=== PATIENT | male | born 1955 | race Hispanic/Latino ===

== ENCOUNTER 2018-01-09 01:14 | Inpatient (IN) | payer OTHER ==
[2018-01-09] MEDS ORDERED: ASPIRIN 325 MG TAB ONE (01:44)
[2018-01-09] MEDS ORDERED: NITROGLYCERIN 0.4 MG/TAB SL ONE (01:44)
[2018-01-09 02:11] LABS: Absolute Lymphocytes (CBC) 5.7 K/uL (0.7-4.9); Absolute Monocytes 1.1 K/uL (0.1-1.3); Absolute Neutrophil 5.5 K/uL (1.8-8.0); Basophils % 1.2 % (0-1.3); Hematocrit 41.8 % (39.6-49.0); Lymphocytes % 43.8 % (15.3-44.8); MCH 30.5 pg (27.0-35.0); MCV 91.6 fL (80-100); Monocytes % 8.5 % (3.3-12.3); RBC Red Blood Cell Count 4.56 M/uL (4.33-5.43)
[2018-01-09 02:15] LABS: Protime INR 0.95
[2018-01-09 02:41] LABS: Potassium 3.3 mEq/L (3.6-5.0)
[2018-01-09 02:47] LABS: Albumin 3.8 g/dL (3.2-5.5); Bilirubin Direct 0.1 mg/dL (0-0.2); Bilirubin Total 0.4 mg/dL (0.3-1.2); Magnesium 1.6 mg/dL (1.8-2.5); Protein, Total 7.4 g/dL (6.0-8.3)
[2018-01-09 02:54] LABS: CKMB Creatine Kinase MB 1.6 ng/ml (0.3-4.0)
--- NOTE | 2018-01-09 03:09 | ER ---
Nurse's Notes [facility] Name: Abad Santos Age: 62 yrs Sex: Male : 1955 Arrival Date: 01/09/2018 Time: 01:15 Bed 19 Private MD: Diagnosis: Non-ST elevation (NSTEMI) myocardial infarction Presentation: 01/09 01:24 Presenting complaint: Patient states: burning CP for past several days but became worse aa1 tonight. Pt appears diaphoretic. Transition of care: patient was not received from another setting of care. Onset of symptoms was January 09, 2018. Initial Sepsis Screen: Does the patient meet any 2 criteria? No. Patient's initial sepsis screen is negative. Does the patient have a suspected source of infection? No. Patient's initial sepsis screen is negative. Care prior to arrival: None. 01:24 Method Of Arrival: Wheelchair aa1 01:24 Acuity: JOSE MIGUEL 2 aa1 Historical: - Allergies: 01:29 No Known Allergies; aa1 - Home Meds: :29 Clinoril Oral 200 mg twice a day [Active]; Pravachol 10 mg Oral nightly [Active]; aa1 allopurinol 300 mg Oral tab 1 tab once daily [Active]; lisinopril 40 mg Oral tab 1 tab once daily [Active]; aspirin 81 mg Oral TbEC 1 tab once daily [Active]; Tenoretic 100 100-25 mg oral tab 1 tab once daily [Active]; tramadol 50 mg Oral tab as needed [Active]; colchicine 0.6 mg Oral tab 1 tab once daily [Active]; - PMHx: 01:29 Hypertension; Gout; aa1 - PSHx: 01:29 None; aa1 - Immunization history:: Flu vaccine is not up to date. - Social history:: Smoking status: Patient uses tobacco products, smokes one-half pack cigarettes per day. Screenin:34 Abuse screen: Denies threats or abuse. Denies injuries from another. Nutritional bp screening: No deficits noted. Tuberculosis screening: No symptoms or risk factors identified. Fall Risk None identified. Assessment: 01:30 General: Appears distressed, uncomfortable, obese, Behavior is cooperative, appropriate bp for age, anxious. Pain: Complains of pain in mid-sternal area Pain currently is 8 out of 10 on a pain scale. Neuro: Level of Consciousness is awake, alert, obeys commands, Oriented to person, place, time, situation, Appropriate for age. Cardiovascular: Rhythm is sinus bradycardia Chest pain. Respiratory: Airway is patent Respiratory effort is even, unlabored, Respiratory pattern is regular, symmetrical, Denies shortness of breath. GI: No signs and/or symptoms were reported involving the gastrointestinal system. : No signs and/or symptoms were reported regarding the genitourinary system. EENT: No deficits noted. Derm: No deficits noted. Musculoskeletal: Circulation, motion, and sensation intact. Range of motion: intact in all extremities. 02:56 Reassessment: PT C/O MORE CP, BRIEFLY HYPOTENSIVE AND BRADYCARDIC. EKG REPEATED, bp ABNORMALITIES NOTED ON MONITOR. 05:53 Reassessment: ADMIT ORDERS ON FILE, PT EXPRESSING COMPLETE RELIEF OF S/S. bp Vital Signs: 01:29 BP 133 / 84; Pulse 59; Resp 22; Temp 97.3; Pulse Ox 97% on R/A; Weight 126.1 kg; Height aa1 5 ft. 10 in. (177.80 cm); Pain 8/10; 01:34 BP 127 / 90; Pulse 58; Resp 15; Pulse Ox 95% ; bp 02:57 BP 113 / 71; Pulse 58; Resp 12; Pulse Ox 97% ; bp 03:32 BP 127 / 84; Pulse 59; Resp 16; Pulse Ox 93% ; bp 04:30 BP 130 / 82; Pulse 64; Resp 13; Pulse Ox 98% ; bp 05:30 BP 120 / 79; Pulse 58; Resp 14; Pulse Ox 97% ; bp 06:00 BP 123 / 83; Pulse 57; Resp 14; Pulse Ox 97% ; bp 01:29 Body Mass Index 39.89 (126.10 kg, 177.80 cm) aa1 ED Course: 01:15 Patient arrived in ED. ds1 01:25 Triage completed. aa1 01:25 EKG done, by ED staff, reviewed by Enrike Mcmahan MD. aa1 01:29 Arm band placed on right wrist. Patient placed in an exam room, on a stretcher. aa1 01:30 Patient has correct armband on for positive identification. Bed in low position. Call aa1 light in reach. monitoring specialist on. Pulse ox on. NIBP on. 01:31 Abdulaziz Reese, RN is Primary Nurse. bp 01:33 Inserted saline lock: 20 gauge in right forearm, using aseptic technique. Blood bp collected. 01:34 Enriek Mcmahan MD is Attending Physician. tw4 01:57 X-ray completed. Portable x-ray completed in exam room. Patient tolerated procedure kw well. 01:57 XRAY Chest (1 view) In Process Unspecified. EDMS 03:07 Ryan Sanford MD is Hospitalizing Provider. tw4 03:33 No provider procedures requiring assistance completed. Patient admitted, IV remains in bp place. 06:40 Primary Nurse role handed off by Abdulaziz Reese, RN 06:41 Abdulaziz Reese, VIKTORIYA is Primary Nurse. bp Administered Medications: 01:45 Drug: Aspirin Chewable Tablet 162 mg Route: PO; bp 01:50 Follow up: Response: No adverse reaction bp 01:45 Drug: Nitroglycerin 0.4 mg Route: Sublingual; bp 03:30 Follow up: Response: Blood pressure is lowered bp 03:30 Drug: Lovenox 1 mg/kg Route: Sub-Q; Site: right lower abdomen; bp 03:31 Follow up: Response: No adverse reaction bp Outcome: 03:08 Decision to Hospitalize by Provider. tw4 06:06 Admitted to Tele accompanied by tech, family with patient, via stretcher, room 411, bp with chart, Report called to SKYLAR SADLER 06:07 Condition: stable bp 06:07 Instructed on the need for admit. 06:30 Patient left the ED. bp 06:42 Patient left the ED. Signatures: Dispatcher [employer] EDID Amena Delgado RN RN aa1 Nicole Morales RN RN Priscilla Mathews 1 Sandra Rojas Abdulaziz Reese, VIKTORIYA RN bp Enrike Mcmahan MD MD tw4
--- NOTE | 2018-01-09 03:09 | EDPHYS ---
Physician Documentation [facility] Name: Abad Santos Age: 62 yrs Sex: Male : 1955 Arrival Date: 01/09/2018 Time: 01:15 Bed 19 Private MD: ED Physician Enrike Mcmahan HPI: 01/09 01:38 This 62 yrs old Male presents to ER via Wheelchair with complaints of Chest tw4 Pain. 01:38 The patient or guardian reports chest pain that is located primarily in the anterior tw4 chest wall, left. Onset: last week. The pain does not radiate. Associated signs and symptoms: The patient has no apparent associated signs or symptoms. The chest pain is described as dull, a heaviness. Duration: The patient or guardian reports a single episode. Modifying factors: The symptoms are alleviated by nothing. the symptoms are aggravated by nothing. Severity of pain: At its worst the pain was severe in the emergency department the pain is a 8 / 10. The patient has not experienced similar symptoms in the past. Historical: - Allergies: :29 No Known Allergies; aa1 - Home Meds: :29 Clinoril Oral 200 mg twice a day [Active]; Pravachol 10 mg Oral nightly [Active]; aa1 allopurinol 300 mg Oral tab 1 tab once daily [Active]; lisinopril 40 mg Oral tab 1 tab once daily [Active]; aspirin 81 mg Oral TbEC 1 tab once daily [Active]; Tenoretic 100 100-25 mg oral tab 1 tab once daily [Active]; tramadol 50 mg Oral tab as needed [Active]; colchicine 0.6 mg Oral tab 1 tab once daily [Active]; - PMHx: :29 Hypertension; Gout; aa1 - PSHx: 01:29 None; aa1 - Immunization history:: Flu vaccine is not up to date. - Social history:: Smoking status: Patient uses tobacco products, smokes one-half pack cigarettes per day. ROS: 01:38 Constitutional: Negative for fever, chills, and weight loss, Respiratory: Negative for tw4 shortness of breath, cough, wheezing, and pleuritic chest pain, Abdomen/GI: Negative for abdominal pain, nausea, vomiting, diarrhea, and constipation, Back: Negative for injury and pain, MS/Extremity: Negative for injury and deformity. 01:38 Cardiovascular: Positive for chest pain, Negative for edema, orthopnea, palpitations, paroxysmal nocturnal dyspnea. Exam: 01:38 Constitutional: This is a well developed, well nourished patient who is awake, alert, tw4 and in no acute distress. Head/Face: Normocephalic, atraumatic. Chest/axilla: Normal chest wall appearance and motion. Nontender with no deformity. No lesions are appreciated. Cardiovascular: Regular rate and rhythm with a normal S1 and S2. No gallops, murmurs, or rubs. Normal PMI, no JVD. No pulse deficits. Respiratory: Lungs have equal breath sounds bilaterally, clear to auscultation and percussion. No rales, rhonchi or wheezes noted. No increased work of breathing, no retractions or nasal flaring. Abdomen/GI: Soft, non-tender, with normal bowel sounds. No distension or tympany. No guarding or rebound. No evidence of tenderness throughout. Back: No spinal tenderness. No costovertebral tenderness. Full range of motion. MS/ Extremity: Pulses equal, no cyanosis. Neurovascular intact. Full, normal range of motion. Neuro: Awake and alert, GCS 15, oriented to person, place, time, and situation. Cranial nerves II-XII grossly intact. Motor strength 5/5 in all extremities. Sensory grossly intact. Cerebellar exam normal. Normal gait. Vital Signs: 01:29 BP 133 / 84; Pulse 59; Resp 22; Temp 97.3; Pulse Ox 97% on R/A; Weight 126.1 kg; Height aa1 5 ft. 10 in. (177.80 cm); Pain 8/10; 01:34 BP 127 / 90; Pulse 58; Resp 15; Pulse Ox 95% ; bp 02:57 BP 113 / 71; Pulse 58; Resp 12; Pulse Ox 97% ; bp 03:32 BP 127 / 84; Pulse 59; Resp 16; Pulse Ox 93% ; bp 04:30 BP 130 / 82; Pulse 64; Resp 13; Pulse Ox 98% ; bp 05:30 BP 120 / 79; Pulse 58; Resp 14; Pulse Ox 97% ; bp 06:00 BP 123 / 83; Pulse 57; Resp 14; Pulse Ox 97% ; bp 01:29 Body Mass Index 39.89 (126.10 kg, 177.80 cm) aa1 MDM: 01:34 Patient medically screened. 05:22 Differential diagnosis: acute myocardial infarction, acute pericarditis, coronary tw4 artery disease chest wall pain, pulmonary embolus, stable angina, thoracic aortic disection, unstable angina. Data reviewed: vital signs, nurses notes. Data interpreted: digital circuit designer: rhythm is normal sinus rhythm, Pulse oximetry: Interpretation: normal. Counseling: I had a detailed discussion with the patient and/or guardian regarding: the historical points, exam findings, and any diagnostic results supporting the discharge/admit diagnosis, lab results, radiology results. Physician consultation: Ryan Sanford MD was contacted at 04:40, regarding admission, and will see patient in inpatient room, would like consultation with Cardiology \[id number] Dr Iglesias. Admission orders: after a detailed discussion of the patient's condition and case, the admit orders are written by me. 01/09 01:35 Order name: Basic Metabolic Panel; Complete Time: 02:58 01/09 01:35 Order name: BNP; Complete Time: 02:58 01/09 01:35 Order name: CBC with Diff; Complete Time: 02:58 01/09 01:35 Order name: Ckmb; Complete Time: 02:58 01/09 01:35 Order name: CPK; Complete Time: 02:58 01/09 01:35 Order name: LFT's; Complete Time: 02:58 01/09 01:35 Order name: Magnesium; Complete Time: 02:58 01/09 01:35 Order name: PT-INR; Complete Time: 02:58 01/09 01:35 Order name: Ptt, Activated; Complete Time: 02:58 01/09 01:35 Order name: Troponin (emerg Dept Use Only); Complete Time: 02:58 01/09 05:28 Order name: CKMB Creatine Kinase MB EDDC 01/09 05:28 Order name: CKMB Creatine Kinase MB EDDC 01/09 05:28 Order name: CKMB Creatine Kinase MB EDDC 01/09 05:28 Order name: Creatine Phosphokinase EDDC 01/09 01:35 Order name: XRAY Chest (1 view) 01/09 01:35 Order name: EKG; Complete Time: 01:36 01/09 05:28 Order name: CONS Physician Consult [facility] 01/09 05:28 Order name: Creatine Phosphokinase [facility] 01/09 05:28 Order name: Creatine Phosphokinase [facility] 01/09 05:28 Order name: Lipid Profile [facility] 01/09 05:28 Order name: Lipid Profile [facility] 01/09 05:28 Order name: Troponin I [facility] 01/09 05:28 Order name: Troponin I [facility] 01/09 05:28 Order name: Troponin I [facility] 01/09 05:29 Order name: Echo with Doppler [facility] 01/09 05:30 Order name: Abdomen Exam Limited [facility] 01/09 06:41 Order name: Urine Dipstick--Ancillary (enter results) 01/09 01:35 Order name: Cardiac monitoring; Complete Time: 01:36 01/09 01:35 Order name: EKG - Nurse/Tech; Complete Time: 01:36 01/09 01:35 Order name: IV Saline Lock; Complete Time: 01:36 01/09 01:35 Order name: Labs collected and sent; Complete Time: 01:37 01/09 01:35 Order name: O2 Per Protocol; Complete Time: 01:37 01/09 01:35 Order name: O2 Sat Monitoring; Complete Time: 01:37 01/09 01:35 Order name: Urine Dipstick-Ancillary (obtain specimen); Complete Time: 04:41 01/09 05:30 Order name: NPO [facility] EC:38 Rate is 58 beats/min. Rhythm is regular. [place] interval is normal. QRS interval is normal. tw4 QT interval is normal. No Q waves. T waves are Inverted in leads III, aVF. No ST changes noted. Clinical impression: NSR w/ Non-specific ST/T Changes and No evidence of ischemia. Interpreted by me. Reviewed by me. Administered Medications: 01:45 Drug: Aspirin Chewable Tablet 162 mg Route: PO; bp 01:50 Follow up: Response: No adverse reaction bp 01:45 Drug: Nitroglycerin 0.4 mg Route: Sublingual; bp 03:30 Follow up: Response: Blood pressure is lowered bp 03:30 Drug: Lovenox 1 mg/kg Route: Sub-Q; Site: right lower abdomen; bp 03:31 Follow up: Response: No adverse reaction bp Disposition: 01/09/18 03:08 Hospitalization ordered by Ryan Sanford for Inpatient Admission. Preliminary diagnosis is Non-ST elevation (NSTEMI) myocardial infarction. - Bed requested for Telemetry/MedSurg (Inpatient). - Status is Inpatient Admission. fc - Condition is Stable. - Problem is new. - Symptoms have worsened. UTI on Admission? No Signatures: Dispatcher [employer] EDMS Yovana Vásquez RN RN Amena Delgado RN RN aa1 Nicole Morales RN VIKTORIYA Abdulaziz Reese, RN VIKTORIYA Enrike Mcmahan MD MD tw4 Corrections: (The following items were deleted from the chart) 03:18 03:08 Hospitalization Ordered by Ryan Sanford MD for Inpatient Admission. Preliminary diagnosis is Non-ST elevation (NSTEMI) myocardial infarction. Bed requested for Telemetry/MedSurg (Inpatient). Status is Inpatient Admission. Condition is Stable. Problem is new. Symptoms have worsened. UTI on Admission? No. tw4 06:30 03:18 01/09/2018 03:08 Hospitalization Ordered by Ryan Sanford MD for Inpatient bp Admission. Preliminary diagnosis is Non-ST elevation (NSTEMI) myocardial infarction. Bed requested for Telemetry/MedSurg (Inpatient). Status is Inpatient Admission. Condition is Stable. Problem is new. Symptoms have worsened. UTI on Admission? No. mw 06:42 06:30 01/09/2018 03:08 Hospitalization Ordered by Ryan Sanford MD for Inpatient fc Admission. Preliminary diagnosis is Non-ST elevation (NSTEMI) myocardial infarction. Bed requested for Telemetry/MedSurg (Inpatient). Status is Inpatient Admission. Condition is Stable. Problem is new. Symptoms have worsened. UTI on Admission? No. bp
[2018-01-09] MEDS ORDERED: ENOXAPARIN 100 MG/ML SYR SQ ONE (03:27)
[2018-01-09] MEDS ORDERED: MORPHINE 4 MG/ML SYR IV PRN (05:23)
[2018-01-09] MEDS ORDERED: ACETAMINOPHEN 500 MG TAB PO PRN (05:23)
--- NOTE | 2018-01-09 05:34 | P.HP ---
Certification for Inpatient Patient admitted to: Inpatient With expected LOS: >2 Midnights Patient will require the following post-hospital care: None Practitioner: I am a practitioner with admitting privileges, knowledge of patient current condition, hospital course, and medical plan of care. Services: Services provided to patient in accordance with Admission requirements found in Title 42 Section 412.3 of the Code of Federal Regulations Patient History Date of Service: 01/09/18 Reason for admission: Chest pain rule out acute coronary syndrome History of Present Illness: Patient is a 62-year-old gentleman who came to hospital with chest pain. Patient 's pain was in the sternal region. Patient was short of breath. Patient's pain was really sharp. Patient was having diaphoresis. Patient came into the hospital for further evaluation. Patient's history of hypertension and dyslipidemia. Patient denies having diabetes. Patient's EKG reveals Q-waves in the inferior leads. Patient was admitted to hospital further evaluation. Allergies No Known Allergies Allergy (Unverified 01/09/18 03:59) Home medications list reviewed: No - Past Medical/Surgical History -: Hypertension -: Dyslipidemia -: BPH Past Surgical History: Reviewed- Non-Contributory - Family History Father Family History: Reviewed- Non-Contributory - Social History Smoking Status: Never smoker Alcohol use: No CD- Drugs: No Review of Systems 10-point ROS is otherwise unremarkable Physical Examination - Vital Signs Temperature: 99 F Blood Pressure: 110/80 Pulse: 60 Respirations: 18 Pulse Ox (%): 96 - Physical Exam General: Alert, In no apparent distress, Oriented x3 HEENT: Atraumatic, PERRLA, Mucous membr. moist/pink, EOMI, Sclerae nonicteric Neck: Supple, 2+ carotid pulse no bruit, No LAD, Without JVD or thyroid abnormality Respiratory: Clear to auscultation bilaterally, Normal air movement Cardiovascular: Regular rate/rhythm, Normal S1 S2, No murmurs Gastrointestinal: Normal bowel sounds, Soft and benign, Non-distended, No tenderness Musculoskeletal: No clubbing, No swelling, No tenderness Integumentary: No rashes Neurological: Normal gait, Normal speech, Normal strength at 5/5 x4 extr, Normal tone, Sensation intact, Cranial nerves 3-12 intact, Normal affect Lymphatics: No axilla or inguinal lymphadenopathy - Studies Laboratory Data (last 24 hrs) 01/09/18 01:35: PT 11.2, INR 0.95, APTT 27.9 01/09/18 01:35: WBC 13.0 H, Hgb 13.9, Hct 41.8, Plt Count 334 01/09/18 01:35: B-Natriuretic Peptide 237 H 01/09/18 01:35: Sodium 139, Potassium 3.3 L, BUN 41 H, Creatinine 1.49 H, Glucose 135 H, Magnesium 1.6 L, Total Bilirubin 0.4, AST 20, ALT 12, Alkaline Phosphatase 76 Assessment & Plan - Problems (Diagnosis) (1) Unstable angina Current Visit: Yes Status: Acute (2) Hypertension Current Visit: Yes Status: Acute (3) Dyslipidemia Current Visit: Yes Status: Acute (4) Positive Sharma's Sign Current Visit: Yes Status: Acute (5) Acute renal insufficiency Current Visit: Yes Status: Acute - Plan Plan: 1. Serial troponins and EKG 2. Cardiology consultation 3. Echocardiogram further evaluation per Cardiology 4. Anti-platelet therapy, anticoagulation, beta-bimal, statin, and O2 as needed 5. IV morphine for pain 6. Nitro p.r.n. 7. Right upper quadrant abdominal ultrasound 8. Mucomyst and bicarb drip for renal protection 9. GI and DVT prophylaxis Discharge Plan: Home Plan to discharge in: 24 Hours - Advance Directives Does patient have a Living Will: No Does patient have a Durable POA for Healthcare: No - Code Status/Comfort Care Code Status Assessed: Yes Code Status: Full Code Critical Care: No Time Spent Managing PTS Care (In Minutes): 50
[2018-01-09] MEDS ORDERED: ACETYLCYST 20% 800 MG/4 ML VIAL PO ONE (06:37)
--- NOTE | 2018-01-09 06:43 | P.PN ---
Date of Service: 01/09/18 Spoke to nursing staff, VIKTORIYA Hatfield. Patient's chest pain is resolved. No complaints of chest pain at this time. May nursing staff aware that patient needs to be kept NPO for possible cardiac intervention today
[2018-01-09] MEDS ORDERED: KCL 20 MEQ/100 mL IVPB 20 MEQ/100 ML BAG IV SCH (07:00)
[2018-01-09 07:22] LABS: CKMB Creatine Kinase MB 152.3 ng/ml (0.3-4.0)
[2018-01-09] MEDS: D5W 1,000 ML with NA BICARB 8.4% 50 MEQ IV SCH ×4 (07:43→21:00)
[2018-01-09] MEDS: METOPROLOL TAR 50 MG TAB PO SCH ×2 (07:44→21:20)
--- NOTE | 2018-01-09 08:56 | RAD REPORT ---
EXAM DESCRIPTION: RAD - Chest Single View - 01/09/2018 1:58 am CLINICAL HISTORY: Chest pain. COMPARISON: None. FINDINGS: Portable technique limits examination quality. Mild nonspecific interstitial prominence is seen. This may indicate mild interstitial pulmonary edema or interstitial pneumonitis. The heart is upper limit normal size. No displaced fractures.
[2018-01-09] MEDS ORDERED: ASPIRIN 325 MG TAB PO SCH (09:00)
[2018-01-09] MEDS ORDERED: VALSARTAN 80 MG TAB PO SCH (09:00)
--- NOTE | 2018-01-09 09:35 | RAD REPORT ---
EXAM DESCRIPTION: US - Abdomen Exam Limited - 01/09/2018 8:13 am CLINICAL HISTORY: Abdominal pain. COMPARISON: None. FINDINGS: The gallbladder demonstrates no gallstones. No pericholecystic fluid or gallbladder wall t hickening. The common bile duct is normal measuring 4 mm. The liver demonstrates no findings of intrahepatic biliary dilatation. IMPRESSION: Unremarkable examination.
[2018-01-09 09:51] LABS: Urine Blood NEGATIVE (NEG); Urine Glucose NEGATIVE (NEG); Urine Protein NEGATIVE (NEG); Urine pH 5.5 (5.0-7.0)
[2018-01-09] MEDS ORDERED: NA CHLORIDE 0.9% 500 ML ONE (11:14)
[2018-01-09] MEDS ORDERED: HEPARIN 5000 UNIT/ML 1 ML VIAL ONE (11:14)
[2018-01-09] MEDS ORDERED: HEPA 1000U/500MLS 2,000 UNIT/1,000 ML BAG IV ONE (11:15)
[2018-01-09] MEDS ORDERED: NA CHLORIDE 0.9% 0 ML ONE (11:15)
[2018-01-09] MEDS ORDERED: LIDOCAINE 1% 20 ML MDV ONE (11:15)
[2018-01-09] MEDS ORDERED: NICARDIPINE HCL 25 MG/10 ML IV ONE (11:15)
[2018-01-09] MEDS ORDERED: ATROPINE SULF 1 MG/10 ML SYR IV ONE (11:15)
[2018-01-09] MEDS ORDERED: FENTANYL CITR 100 MCG/2 ML ONE (11:25)
[2018-01-09] MEDS ORDERED: MIDAZOLAM HCL 2 MG/2 ML INJ ONE ×2 (11:25→11:35)
--- NOTE | 2018-01-09 11:27 | CON ---
Identification: A 62-year-old man. Attending Physician: Dr. Sanford. Chief Complaint: Pain and burning in the chest. It has resolved at this point. History Of Present Illness: For about a week, Mr. Sebastian has been having chest pain whenever he ex erts himself. Yesterday, he tried to mow his lawn, could not really complete it because with with ex ertion, it got worse. Came to the ER, was having chest pain, received Lovenox and aspirin. Chest pa in resolved and overnight, he has had cardiac enzymes that are clearly abnormal. The troponin was 0. 25 on admission, 6.49 a few hours later. Past Medical History: The patient has no previous history of myocardial infarction, stroke. Medications: He does take medicines for diabetes and hypertension. Allergies: HE HAS NO ALLERGIES. Social History: He smokes about 4 cigarettes per day, is willing to quit. Past Surgical History: No previous surgical history. Physical Examination: General: He is 5 feet 10 inches, 276 pounds, body mass index 39. HEENT: Normal. Lungs: Clear. Heart: S4 gallop. No significant murmur. Abdomen: Soft. Extremities: Mild edema. Distal pulses diminished. Diagnostic Data: His electrocardiogram reveals an inferior infarction. No injury pattern. Impression: The patient has had a non-ST elevation myocardial infarction. His Q-waves maybe from an inferior myocardial infarction that is recent, but completed. He needs to have a cardiac cath. We will do that later today. He seems to understand the procedure, its potential benefits, indications, risks, and agrees to proceed. JL/ALEXEI Voice ID: [id number] Report ID: [id number]
--- NOTE | 2018-01-09 14:41 | P.PN ---
Subjective Date of Service: 01/09/18 Primary Care Provider: Dr. Hough ([place], [place]) Chief Complaint: Chest pain rule out acute coronary syndrome Subjective: Doing well Physical Examination - Vital Signs Temperature: 97 F Blood Pressure: 133/78 Pulse: 59 Respirations: 16 Pulse Ox (%): 95 - Physical Exam General: Alert, In no apparent distress, Oriented x3, Cooperative HEENT: Atraumatic, Mucous membr. moist/pink Neck: Supple Respiratory: Clear to auscultation bilaterally, Normal air movement Cardiovascular: Normal pulses, Regular rate/rhythm Gastrointestinal: Normal bowel sounds, Soft and benign, Non-distended, No tenderness, No masses, No rebound, No guarding Musculoskeletal: No erythema, No tenderness, No warmth Integumentary: No tenderness/swelling, No erythema, No warmth, No cyanosis Neurological: Normal speech, Normal strength at 5/5 x4 extr, Normal tone, Normal affect Lymphatics: No axilla or inguinal lymphadenopathy - Studies Laboratory Data (last 24 hrs) 01/09/18 01:35: PT 11.2, INR 0.95, APTT 27.9 01/09/18 01:35: WBC 13.0 H, Hgb 13.9, Hct 41.8, Plt Count 334 01/09/18 01:35: B-Natriuretic Peptide 237 H 01/09/18 01:35: Sodium 139, Potassium 3.3 L, BUN 41 H, Creatinine 1.49 H, Glucose 135 H, Magnesium 1.6 L, Total Bilirubin 0.4, AST 20, ALT 12, Alkaline Phosphatase 76 Medications List Reviewed: Yes Assessment & Plan - Problems (Diagnosis) (1) CAD (coronary artery disease) Current Visit: Yes Status: Acute Plan: Patient heart heart catheterization this morning. Case discussed with cardiology. Patient has severe CAD. Patient will need be transferred to higher level of care for CABG. Arrangements for transfer will be arranged. Qualifiers: Coronary Disease-Associated Artery/Lesion type: unspecified vessel or lesion type Associated angina: with unstable angina (2) Hypertension Onset Date: 01/09/18 Current Visit: Yes Status: Chronic Plan: Continue with blood pressure control. Will monitor and adjust appropriately. Qualifiers: Hypertension type: essential hypertension Qualified Code(s): I10 - Essential (primary) hypertension (3) Unstable angina Onset Date: 01/09/18 Current Visit: Yes Status: Acute Plan: Patient had abnormal heart catheterization. Will transfer to higher level of care for CABG. (4) Non Q wave myocardial infarction Current Visit: Yes Status: Acute (5) Hypokalemia Current Visit: Yes Status: Acute Plan: Will continue to monitor and replace. Replacement protocol in place. (6) Hypomagnesemia Current Visit: Yes Status: Acute Plan: Will continue to monitor and replace. Replacement protocol in place. (7) Acute renal insufficiency Onset Date: 01/09/18 Current Visit: Yes Status: Acute Plan: Patient with acute renal insufficiency. Will need to evaluate for chronic renal disease. Will check renal ultrasound. Discharge Plan: Transfer Plan to discharge in: 24 Hours Time Spent Managing Pts Care (In Minutes): 55
[2018-01-09] MEDS ORDERED: TRAMADOL HCL 50 MG TAB PO PRN (14:42)
--- NOTE | 2018-01-09 14:43 | EKG ---
Test Date: 2018-01-09 Test Time: 02:49:03 Radio Talk Show Host: BP MEASUREMENT RESULTS: Intervals: Rate: 58 TX: 190 QRSD: 106 QT: 442 QTc: 433 [place]: P: 1 TX: 190 QRS: 67 T: -26 INTERPRETIVE STATEMENTS: Sinus bradycardia with fusion complexes Inferior infarct, age undetermined Abnormal ECG Compared to ECG 01/09/2018 01:22:25 Fusion complex(es) now present Myocardial infarct finding still present Electronically Signed On 01-09-18 14:43:30 CDT by Rosendo Ambrocio
--- NOTE | 2018-01-09 14:44 | EKG ---
Test Date: 2018-01-09 Test Time: 01:22:25 Correspondent: BP MEASUREMENT RESULTS: Intervals: Rate: 58 NC: 196 QRSD: 106 QT: 464 QTc: 455 [place]: P: 5 NC: 196 QRS: 41 T: -15 INTERPRETIVE STATEMENTS: Sinus bradycardia Inferior infarct, age undetermined Abnormal ECG No previous ECG available for comparison Electronically Signed On 01-09-18 14:43:40 CDT by Rosendo Ambrocio
--- NOTE | 2018-01-09 15:43 | ECHO ---
HEIGHT: 5 ft 10 in WEIGHT: 276 lb 8 oz DATE OF STUDY: 01/09/[address]: Ryan Sanford MD 2-DIMENSIONAL: YES M.MODE: YES DOPPLER: YES COLOR FLOW: YES TDS: NO PORTABLE: NO DEFINITY: NO BUBBLE STUDY: NO DIAGNOSIS: CONGESTIVE HEART FAILURE CARDIAC HISTORY: CATHERIZATION: NO SURGERY: NO PROSTHETIC VALVE: NO PACEMAKER: NO MEASUREMENTS (cm) DIASTOLIC (NORMALS) SYSTOLIC (NORMALS) IVSd 1.2 (0.6-1.2) LA Diam 4.1 (1.9-4.0) LVEF 55-59% LVIDd 5.4 (3.5-5.7) LVIDs 4.2 (2.0-3.5) %FS 22% LVPWd 1.3 (0.6-1.2) Ao Diam 3.2 (2.0-3.7) 2 DIMENSIONAL ASSESSMENT: RIGHT ATRIUM: NORMLA LEFT ATRIUM: DILATED RIGHT VENTRICLE: NORMAL LEFT VENTRICLE: LEFT VENTRICULAR HYPERTROPHY TRICUSPID VALVE: NORMAL MITRAL VALVE: NORMAL PULMONIC VALVE: NORMAL AORTIC VALVE: SCLEROSIS PERICARDIAL EFFUSION: NONE AORTIC ROOT: NORMAL LEFT VENTRICULAR WALL MOTION: NORMAL DOPPLER/COLOR FLOW: MILD MITRAL REGURGITATION. MILD AORTIC REGURGITATION. NO AORTIC STENOSIS. COMMENTS: NORMAL LEFT VENTRICULAR EJECTION FRACTION. LEFT VENTRICULAR HYPERTROPHY. DILATED LEFT ATRIUM. AORTIC SCLEROSIS WITH NO AORTIC STENOSIS. MILD MITRAL REGURGITATION. MILD AORTIC REGURGITATION. TECHNOLOGIST: Evi RUIZ
[2018-01-09] MEDS ORDERED: Enoxaparin 120 MG/0.8 ML SYR SQ SCH (16:00)
--- NOTE | 2018-01-09 17:01 | RAD REPORT ---
EXAM DESCRIPTION: US - Renal Ultrasound-Complete - 01/09/2018 4:16 pm CLINICAL HISTORY: Chronic renal disease. COMPARISON: None. FINDINGS: Both kidneys are normal in size, shape and echotexture. The right kidney measures 10.7 x 6.0 x 5.0 cm. No hydronephrosis seen. 5.3 x 4.8 cm anechoic cyst is present medially. 2.5 x 1.9 cm exophytic cyst is present superiorly. The left kidney measures 11.3 x 5.9 x 4.7 cm. No hydronephrosis seen. 2.8 x 2.5 cm inferior anechoic left renal cyst present. IMPRESSION: Bilateral renal cysts without hydronephrosis or aggressive mass.
[2018-01-09 17:53] LABS: CKMB Creatine Kinase MB 218.1 ng/ml (0.3-4.0)
[2018-01-09] MEDS ORDERED: ACETYLCYST 20% 800 MG/4 ML VIAL PO SCH (18:00)
[2018-01-09] MEDS ORDERED: ATORVASTATIN 20 MG TAB PO SCH (21:00)
--- NOTE | 2018-01-10 00:21 | OP ---
Date of Procedure: 01/09/2018 Surgeon: Rosendo Ambrocio MD Identification: The patient is a 62-year-old man. Procedures: Left heart catheterization, coronary left ventricular angiography. Findings: The patient has a totally occluded very distal RCA stenosis with more proximal 70% and 90% stenoses. Left main is free of significant disease. LAD has multiple 90% lesions. Circumflex, body , and obtuse marginal branches all have multiple 80% to 90% lesions. Left ventricular ejection fract ion within normal limits. No regional wall motion abnormality. Left ventricular end-diastolic press ure elevated at 34 and our plan is for him to have coronary bypass surgery. Procedure In Detail: The patient was brought to the cardiac cemetery laborer in a fasting state, sedated wit h Versed, fentanyl, prepared and draped in the usual sterile fashion. Right radial approach was used . The tissues over the right radial artery were anesthetized with lidocaine. Artery was entered usi ng a 21-gauge needle. A 0.021 inch guidewire, [employer] sheath. We used to TIG catheter by Hepa [place], a G lidewire with a short radius J-tip to maneuver the catheter into the ascending aorta. As soon as the sheath was in, we gave a radial cocktail containing nicardipine, heparin, and nitroglycerin. The TI G catheter was able to engage the right and left coronaries and do the left ventriculogram. It was r emoved over a wire. The arteriotomy was closed using a TR band after that sheath was removed. Complications: From the procedure none. Estimated Blood Loss: 5 cc. Player Development Manager: Chandrika Chow. JL/ALEXEI Voice ID: [id number] Report ID: [id number]
[2018-01-10] MEDS ORDERED: PANTOPRAZOLE 40MG TABLET PO SCH (06:30)
[2018-01-10] MEDS ORDERED: ALLOPURINOL 300 MG TAB PO SCH (09:00)
== END 2018-01-09 22:00 | disposition short-term general hospital (02) | DRG 282 ==
LOC: ER 01:14 → ERHOLD 05:32 → 4TH 05:41
PROVIDERS: ADMIT Hospitalist; ATTEND Family Medicine
PROC: 4A023N7 Measurement of Cardiac Sampling and Pressure, Left Heart, Percutaneous Approach (ICD-10-PCS; principal; 2018-01-09)
PROC: B201YZZ Plain Radiography of Multiple Coronary Arteries using Other Contrast (ICD-10-PCS; 2018-01-09)
PROC: B205YZZ Plain Radiography of Left Heart using Other Contrast (ICD-10-PCS; 2018-01-09)
DX: I21.4 Non-ST elevation (NSTEMI) myocardial infarction (principal); I25.110 Atherosclerotic heart disease of native coronary artery with unstable angina pectoris; E87.6 Hypokalemia; E83.42 Hypomagnesemia; N28.9 Disorder of kidney and ureter, unspecified; E78.5 Hyperlipidemia, unspecified; I10 Essential (primary) hypertension; N40.0 Benign prostatic hyperplasia without lower urinary tract symptoms; F17.210 Nicotine dependence, cigarettes, uncomplicated
CPT/HCPCS: 36415; 71045; 76705; 76770; 80048; 80061; 80076; 81003; 82550; 82553; 83735; 83880; 84484; 85025; 85610; 85730; 93005; 93306; 93458; 96372; 99285; C1893; J0583; J1644; J1650; J2250; J3010

== ENCOUNTER → 2023-11-12 | Emergency (ER) | payer MEDICARE ==
[~2023-11-12] MED LIST: HYDROCODONE/APAP 5/325 MG TAB ONE; MORPHINE 4 MG/ML SYR ONE; ONDANSETRON 4 MG (ODT) TAB ONE
--- NOTE | 2023-11-12 16:58 | RAD REPORT ---
EXAM DESCRIPTION: RAD - Hip Left 2 View - 11/12/2023 4:36 pm CLINICAL HISTORY: PAIN COMPARISON: No comparisons FINDINGS: Mild osteoarthritis. No fracture, dislocation or AVN.
--- NOTE | 2023-11-12 16:58 | RAD REPORT ---
EXAM DESCRIPTION: RAD - Shoulder Right 2 View - 11/12/2023 4:36 pm CLINICAL HISTORY: PAIN COMPARISON: Shoulder Right 2 View dated 05/01/2019 FINDINGS: There is severe osteoarthritis of the right glenohumeral joint. Mild AC joint degenerative changes. Calcific tendinitis noted. No fracture or dislocation.
--- NOTE | 2023-11-12 18:20 | EDPHYS ---
Physician Documentation [facility] Name: Abad Santos Age: 68 yrs Sex: Male : 1955 Arrival Date: 11/12/2023 Time: 15:12 Bed 18 Private MD: ED Physician Reji Hodgson HPI: 11/11 16:53 This 68 yrs old Male presents to ER via Wheelchair with complaints of Pain All cp3 Over, Fall Injury - 2 weeks ago. 16:53 Patient is a 68-year-old male who presents to the ED secondary to right shoulder and cp3 right hip pain that started roughly 2 weeks ago after he fell. The patient endorses that he has had ongoing pain over the last 2 weeks and presents today for further evaluation patient has been ambulatory without assistance but with significant discomfort patient can move her arm but with significant pain. Historical: - Allergies: 15:27 No Known Allergies; aa5 - PMHx: 15:27 Gout; Hypertension; Pre diabetes (Unknown); Back problems (Unknown); aa5 - Immunization history:: Adult Immunizations unknown. - Social history:: Smoking status: Patient denies any tobacco usage or history of. - Family history:: not pertinent. ROS: 16:53 Constitutional: Negative for fever, chills, and weight loss, Eyes: Negative for injury, cp3 pain, redness, and discharge, ENT: Negative for injury, pain, and discharge, Neck: Negative for injury, pain, and swelling, Cardiovascular: Negative for chest pain, palpitations, and edema, Respiratory: Negative for shortness of breath, cough, wheezing, and pleuritic chest pain, Abdomen/GI: Negative for abdominal pain, nausea, vomiting, diarrhea, and constipation, MS/Extremity: Negative for injury and deformity, Skin: Negative for injury, rash, and discoloration, Neuro: Negative for headache, weakness, numbness, tingling, and seizure, Psych: Negative for depression, anxiety, suicide ideation, homicidal ideation, and hallucinations, Allergy/Immunology: Negative for hives, rash, and allergies, Endocrine: Negative for neck swelling, polydipsia, polyuria, polyphagia, and marked weight changes, Hematologic/Lymphatic: Negative for swollen nodes, abnormal bleeding, and unusual bruising, Exam: 16:53 Constitutional: This is a well developed, well nourished patient who is awake, alert, cp3 and in no acute distress. Head/Face: Normocephalic, atraumatic. Eyes: Pupils equal round and reactive to light, extra-ocular motions intact. Lids and lashes normal. Conjunctiva and sclera are non-icteric and not injected. Cornea within normal limits. Periorbital areas with no swelling, redness, or edema. Neck: Trachea midline, no thyromegaly or masses palpated, and no cervical lymphadenopathy. Supple, full range of motion without nuchal rigidity, or vertebral point tenderness. No Meningismus. Chest/axilla: Normal chest wall appearance and motion. Nontender with no deformity. No lesions are appreciated. Cardiovascular: Regular rate and rhythm with a normal S1 and S2. No gallops, murmurs, or rubs. Normal PMI, no JVD. No pulse deficits. Respiratory: Lungs have equal breath sounds bilaterally, clear to auscultation and percussion. No rales, rhonchi or wheezes noted. No increased work of breathing, no retractions or nasal flaring. Abdomen/GI: Soft, non-tender, with normal bowel sounds. No distension or tympany. No guarding or rebound. No evidence of tenderness throughout. Back: No spinal tenderness. No costovertebral tenderness. Full range of motion. 16:53 Musculoskeletal/extremity: patient with tenderness to the right shoulder muscles and trapezius. pain to the right hip without difficulty ranging. patient ambulatorty without assistance. Vital Signs: 15:29 BP 149 / 65; Pulse 84; Resp 18 S; Temp 98(TE); Pulse Ox 99% on R/A; Weight 128.82 kg aa5 (R); Height 5 ft. 7 in. (R); 16:03 BP 152 / 67; Pulse 80; Resp 18; Pulse Ox 99% on R/A; rs5 17:12 BP 155 / 70; Pulse 77; Resp 18; Pulse Ox 99% on R/A; rs5 18:20 BP 160 / 76; Pulse 76; Resp 18; Pulse Ox 99% on R/A; rs5 15:29 Body Mass Index 44.48 (128.82 kg, 170.18 cm) aa5 MDM: 15:44 Patient medically screened. cp3 16:53 Differential diagnosis: contusion, fracture, sprain, strain. Data reviewed: vital cp3 signs, nurses notes, radiologic studies, CT scan, plain films. Consideration of Admission/Observation Escalation of care including admission/observation considered. I considered the following discharge prescriptions or medication management in the emergency department Medications were administered in the Emergency Department. See MAR. 18:23 Independent interpretation of the following test(s) in the Emergency Department X-Ray: cp3 My interpretation is right shoulder - arthritis, tendonitis right hip- arthritis right hip. Response to treatment: the patient's symptoms have markedly improved after treatment. 11/11 16:05 Order name: Shoulder Right (2 View) XRAY; Complete Time: 17:01 cp3 11/11 16:05 Order name: Hip Left 2 View XRAY; Complete Time: 17:01 cp3 Administered Medications: 16:01 Drug: morphine IM 4 mg IM once Route: IM; Site: left deltoid; rs5 16:33 Follow up: Response: No adverse reaction; Pain is decreased rs5 16:01 Drug: Ondansetron PO 4 mg PO once Route: PO; rs5 16:33 Follow up: Response: No adverse reaction rs5 17:02 Drug: Ondansetron PO 4 mg PO once Route: PO; rs5 17:30 Follow up: Response: No adverse reaction rs5 17:05 Drug: oxyCODONE-acetaminophen PO (5 mg-325 mg) 2 tabs PO once Route: PO; rs5 18:00 Follow up: Response: No adverse reaction rs5 Disposition Summary: 11/12/23 18:19 Discharge Ordered Notes: Location: Home cp3 Condition: Stable cp3 Diagnosis - Pain in right shoulder cp3 - Pain in right hip cp3 Followup: cp3 - With: Luis Carlos Pierson MD - When: - Reason: Continuance of care Discharge Instructions: - Discharge Summary Sheet cp3 - Shoulder Pain cp3 - Hip Pain cp3 Forms: - Medication Reconciliation Form cp3 - Thank You Letter cp3 - Antibiotic Education cp3 - Prescription Opioid Use cp3 - Patient Portal Instructions cp3 - Leadership Thank You Letter cp3 Prescriptions: - acetaminophen-codeine 300-15 mg Oral tablet - take 1 tablet ORAL route 2 times per day as needed for pain; 15 tablet; cp3 Refills: 0, Product Selection Permitted - Cyclobenzaprine 5 mg Oral Tablet - take 1 tablet ORAL route 3 times per day As needed; 15 tablet; Refills: 0, cp3 Product Selection Permitted Signatures: Dispatcher [employer] Reji Rivera MD MD cp3 Marcella Castellano RN RN aa5 Grabiel Marquez RN RN rs5
--- NOTE | 2023-11-12 18:20 | ER ---
Nurse's Notes [facility] Name: Abad Santos Age: 68 yrs Sex: Male : 1955 Arrival Date: 11/12/2023 Time: 15:12 Bed 18 Private MD: Diagnosis: Pain in right shoulder;Pain in right hip Presentation: 11/11 15:29 Coronavirus screen: At this time, the client does not indicate any symptoms associated aa5 with coronavirus-19. Ebola Screen: Patient denies travel to an Ebola-affected area in the 21 days before illness onset. Initial Sepsis Screen: Does the patient meet any 2 criteria? No. Patient's initial sepsis screen is negative. Does the patient have a suspected source of infection? No. Patient's initial sepsis screen is negative. Risk Assessment: Do you want to hurt yourself or someone else? Patient reports no desire to harm self or others. Onset of symptoms was October 2023. 15:29 Acuity: JOSE MIGUEL 3 aa5 15:29 Method Of Arrival: Wheelchair aa5 15:29 Chief complaint: Patient states: "I fell about 3 times but the worse fall was in the aa5 bathtub about 2 weeks ago and I've been having pain to my left shoulder, my left hip, and my back". Historical: - Allergies: 15:27 No Known Allergies; aa5 - PMHx: 15:27 Gout; Hypertension; Pre diabetes (Unknown); Back problems (Unknown); aa5 - Immunization history:: Adult Immunizations unknown. - Social history:: Smoking status: Patient denies any tobacco usage or history of. - Family history:: not pertinent. Screenin:30 [facility] ED Fall Risk Assessment (Adult) History of falling in the last 3 months, rs5 including since admission Yes- fall prone (multiple falls) (3 pts) Confusion or Disorientation No (0 pts) Intoxicated or Sedated No (0 pts) Impaired Gait Yes (1 pt) Mobility Assist Device Used Yes (1 pt) Altered Elimination No (0 pt) Score/Fall Risk Level 3 or more points = High Risk Oriented to surroundings, Maintained a safe environment, Educated pt \\T\\ family on fall prevention, incl call for assistance when getting out of bed, Assessed \\T\\ reinforced patient's understanding of fall precautions. 15:30 Abuse screen: Denies threats or abuse. Nutritional screening: No deficits noted. rs5 Tuberculosis screening: No symptoms or risk factors identified. Assessment: 15:30 General: Appears in no apparent distress. uncomfortable, Behavior is cooperative. Pain: rs5 Complains of pain in left shouder and left hip Pain does not radiate. Pain currently is 8 out of 10 on a pain scale. Quality of pain is described as aching, Is continuous. Neuro: Level of Consciousness is awake, alert, obeys commands, Oriented to person, place, time, situation, Golf Course Patroller are equal bilaterally Moves all extremities. Speech is normal, Facial symmetry appears normal, Pupils are PERRLA, Pupil Size: 3 mm Intact. 15:30 Cardiovascular: Rhythm is regular. Respiratory: Airway is patent Respiratory effort is rs5 even, unlabored, Respiratory pattern is regular, symmetrical. GI: Abdomen is round non-distended, Abd is soft and non tender X 4 quads. : No signs and/or symptoms were reported regarding the genitourinary system. EENT: No signs and/or symptoms were reported regarding the EENT system. Derm: Skin is intact, Skin is dry, Skin is normal, Skin temperature is warm. Musculoskeletal: Circulation, motion, and sensation intact. Capillary refill < 3 seconds. 16:15 Reassessment: Patient denies pain at this time. Patient states feeling better. Patient rs5 states symptoms have improved. 16:40 Pain: Complains of pain in left shoulder and left hip Pain does not radiate. Pain rs5 currently is 7 out of 10 on a pain scale. Quality of pain is described as aching, Is continuous. 16:41 Reassessment: Provider notified pt is experiencing pain. rs5 18:20 Reassessment: Patient and/or family updated on plan of care and expected duration. Pain rs5 level reassessed. Patient is alert, oriented x 3, equal unlabored respirations, skin warm/dry/pink. Patient denies pain at this time. Patient states feeling better. Patient states symptoms have improved. Vital Signs: 15:29 BP 149 / 65; Pulse 84; Resp 18 S; Temp 98(TE); Pulse Ox 99% on R/A; Weight 128.82 kg aa5 (R); Height 5 ft. 7 in. (R); 16:03 BP 152 / 67; Pulse 80; Resp 18; Pulse Ox 99% on R/A; rs5 17:12 BP 155 / 70; Pulse 77; Resp 18; Pulse Ox 99% on R/A; rs5 18:20 BP 160 / 76; Pulse 76; Resp 18; Pulse Ox 99% on R/A; rs5 15:29 Body Mass Index 44.48 (128.82 kg, 170.18 cm) aa5 ED Course: 15:15 Patient arrived in ED. im 15:25 Reji Hodgson MD is Attending Physician. cp3 15:27 Arm band placed on. aa5 15:30 Triage completed. aa5 15:30 Patient has correct armband on for positive identification. Placed in gown. Bed in low rs5 position. Call light in reach. Side rails up X2. 15:30 No provider procedures requiring assistance completed. rs5 15:45 Grabiel Marquez, RN is Primary Nurse. rs5 16:37 Shoulder Right (2 View) XRAY In Process Unspecified. EDMS 16:37 Hip Left 2 View XRAY In Process Unspecified. EDMS 18:19 Luis Carlos Pierson MD is Referral Physician. cp3 18:35 IV discontinued, intact, bleeding controlled, No redness/swelling at site. Pressure rs5 dressing applied. Administered Medications: 16:01 Drug: morphine IM 4 mg IM once Route: IM; Site: left deltoid; rs5 16:33 Follow up: Response: No adverse reaction; Pain is decreased rs5 16:01 Drug: Ondansetron PO 4 mg PO once Route: PO; rs5 16:33 Follow up: Response: No adverse reaction rs5 17:02 Drug: Ondansetron PO 4 mg PO once Route: PO; rs5 17:30 Follow up: Response: No adverse reaction rs5 17:05 Drug: oxyCODONE-acetaminophen PO (5 mg-325 mg) 2 tabs PO once Route: PO; rs5 18:00 Follow up: Response: No adverse reaction rs5 Medication: 16:02 VIS not applicable for this client. rs5 Outcome: 18:19 Discharge ordered by . cp3 18:35 Discharged to home ambulatory, rs5 18:35 Condition: improved 18:35 Discharge instructions given to patient, family, Instructed on discharge instructions, follow up and referral plans. medication usage, Demonstrated understanding of instructions, follow-up care, medications, 18:39 Patient left the ED. rs5 Signatures: Dispatcher [employer] Reji Rivera MD MD cp3 Marcella Castellano RN RN aa5 Grabiel Marquez RN RN rs5 Vivian Meek Corrections: (The following items were deleted from the chart) 18:57 15:50 Reassessment: Provider notified pt is experiencing pain. rs5 rs5 18:57 17:01 Reassessment: Patient and/or family updated on plan of care and expected rs5 duration. Pain level reassessed. Patient is alert, oriented x 3, equal unlabored respirations, skin warm/dry/pink. Patient denies pain at this time. Patient states feeling better. Patient states symptoms have improved. rs5 18:58 16:40 Reassessment: Provider notified pt is experiencing pain. rs5 rs5
[2023-11-12 19:24] VITALS: BP 152/67; TEMP 98; O2SAT 99
== END ==
LOC: ER 15:12
DX: M25.511 Pain in right shoulder (principal); M25.551 Pain in right hip
CPT/HCPCS: 73502; 73030; 96372; 99284; Q0162 ×2

== ENCOUNTER 2023-11-24 07:53 | Emergency (ER) | payer MEDICARE ==
[2023-11-24] MEDS ORDERED: ONDANSETRON 4 MG/2 ML VIAL ONE (08:31)
[2023-11-24] MEDS ORDERED: CYCLOBENZAPRINE 10 MG TAB ONE (08:31)
[2023-11-24] MEDS ORDERED: MORPHINE 4 MG/ML SYR ONE (08:32)
--- NOTE | 2023-11-24 09:16 | RAD REPORT ---
EXAM DESCRIPTION: CT - Spine Lumbar Wo Con - 11/24/2023 8:48 am CLINICAL HISTORY: Radiculopathy. PAIN COMPARISON: <Comparisons> TECHNIQUE: Axial noncontrast CT imaging of the lumbar spine was performed with coronal and sagittal re-formatted images. All CT scans are performed using dose optimization technique as appropriate and may include automated exposure control or mA/KV adjustment according to patient size. FINDINGS: No acute lumbar spine fracture seen. No aggressive marrow pattern or malalignment. Paraspinal tissues are normal in thickness. No paraspinal abscess or hematoma seen. Prominent degenerative changes seen lower lumbar levels with vacuum disc and degeneration at L4-5. Mo derate facet hypertrophy is present L4-5 and L5-S1. Central canal narrowing is present L4-5 and L5-S1 . IMPRESSION: No acute lumbar spine degenerative changes. Moderate multilevel lumbar degenerative spondylosis.
--- NOTE | 2023-11-24 09:22 | RAD REPORT ---
EXAM DESCRIPTION: CT - Pelvis Wo Cont - 11/24/2023 8:48 am CLINICAL HISTORY: PAIN COMPARISON: Chest Single View dated 11/14/2023; Chest Single View dated 11/05/2023; Chest Single View d ated 06/06/2023; Chest Single View dated 05/03/2023Stone Protocol dated 05/25/2022No comparisons TECHNIQUE: All CT scans are performed using dose optimization technique as appropriate and may inclu de automated exposure control or mA/KV adjustment according to patient size. FINDINGS: Degenerative changes are present involving both hips, [id number] in slightly more se amaury on the right. No fracture, dislocation or AVN. Moderate lumbar degenerative spondylosis is present with degenerative change in both SI joints. No in trapelvic mass or fluid collection. IMPRESSION: Moderate lower lumbar degenerative changes. Moderate degenerate changes also present bot h hips.
--- NOTE | 2023-11-24 10:16 | EDPHYS ---
Physician Documentation [facility] Name: Abad Santos Age: 68 yrs Sex: Male : 1955 Arrival Date: 11/24/2023 Time: 07:53 Bed 17 Private MD: ED Physician Jose Varela HPI: 11/23 09:09 This 68 yrs old Male presents to ER via EMS with complaints of Back Pain, Fall rt Injury, General Weakness. 09:09 Patient presents to the ED with back pain, left hip pain after a fall yesterday. rt Patient states he lost his balance causing him to fall. Has been able to walk since then. Reports worsening pain. Denies any numbness, tingling. Denies hitting his head or loss of consciousness. Denies other acute complaints, symptoms are moderate in severity, no other aggravating alleviating factors.. Historical: - Allergies: 08:11 No Known Allergies; jl7 - Home Meds: 08:11 allopurinol 300 mg Oral tab 1 tab once daily [Active]; aspirin 81 mg Oral TbEC 1 tab jl7 once daily [Active]; colchicine 0.6 mg Oral tab 1 tab once daily [Active]; lisinopril 40 mg Oral tab 1 tab once daily [Active]; tramadol 50 mg Oral tab as needed [Active]; - PMHx: 08:11 back problems (Unknown); Gout; Hypertension; Pre Diabetes (Unknown); jl7 - PSHx: 08:11 Coronary artery bypass graft; L5-L2 fusion; jl7 - Immunization history:: Adult Immunizations unknown. - Social history:: Smoking status: Patient denies any tobacco usage or history of. - Family history:: not pertinent. ROS: 09:09 Constitutional: Negative for fever, chills, and weight loss, Cardiovascular: Negative rt for chest pain, palpitations, and edema, Respiratory: Negative for shortness of breath, cough, wheezing, and pleuritic chest pain, Abdomen/GI: Negative for abdominal pain, nausea, vomiting, diarrhea, and constipation, Skin: Negative for injury, rash, and discoloration, Neuro: Negative for headache, weakness, numbness, tingling, and seizure, 09:09 Back: Positive for pain at rest, pain with movement, 09:09 MS/extremity: Positive for pain, Negative for deformity, Exam: 09:09 Constitutional: This is a well developed, well nourished patient who is awake, alert, rt and in no acute distress. Head/Face: Normocephalic, atraumatic. Chest/axilla: Normal chest wall appearance and motion. Nontender with no deformity. No lesions are appreciated. Cardiovascular: Regular rate and rhythm with a normal S1 and S2. No gallops, murmurs, or rubs. Normal PMI, no JVD. No pulse deficits. Respiratory: Lungs have equal breath sounds bilaterally, clear to auscultation and percussion. No rales, rhonchi or wheezes noted. No increased work of breathing, no retractions or nasal flaring. Abdomen/GI: Soft, non-tender, with normal bowel sounds. No distension or tympany. No guarding or rebound. No evidence of tenderness throughout. Skin: Warm, dry with normal turgor. Normal color with no rashes, no lesions, and no evidence of cellulitis. MS/ Extremity: Pulses equal, no cyanosis. Neurovascular intact. Full, normal range of motion. Neuro: Awake and alert, GCS 15, oriented to person, place, time, and situation. Cranial nerves II-XII grossly intact. Motor strength 5/5 in all extremities. Sensory grossly intact. Cerebellar exam normal. Normal gait. 09:09 Back: Mild left lower paraspinal tenderness, no midline tenderness, no step-offs, Vital Signs: 08:00 BP 140 / 76; Pulse 87; Resp 17; Temp 99.3; Pulse Ox 95% ; Weight 125.19 kg; Height 5 jl7 ft. 4 in. ; Pain 8/10; 09:30 BP 137 / 76; Pulse 70; Resp 18; Pulse Ox 98% on R/A; rs5 10:18 BP 144 / 78; Pulse 80; Resp 18; Pulse Ox 99% on R/A; rs5 08:00 Body Mass Index 47.37 (125.19 kg, 162.56 cm) [facility] 08:00 Pain Scale: Adult jl7 MDM: 08:19 Patient medically screened. rt 12:03 Differential diagnosis: Mechanical back pain, compression fracture. Data reviewed: rt vital signs, nurses notes, radiologic studies. I considered the following discharge prescriptions or medication management in the emergency department Medications were administered in the Emergency Department. See MAR. Independent interpretation of the following test(s) in the Emergency Department CT Scan: My interpretation is No fracture seen on interpretation of x-ray images. Test considered but Not performed: Other Details Denies syncopal event, EKG, labs not indicated. Care significantly affected by the following chronic conditions: Diabetes, Hypertension. Counseling: I had a detailed discussion with the patient and/or guardian regarding the historical points, exam findings, and any diagnostic results supporting the discharge/admit diagnosis, radiology results, the need for outpatient follow up, to return to the emergency department if symptoms worsen or persist or if there are any questions or concerns that arise at home. Response to treatment: the patient's symptoms have markedly improved after treatment. 11/23 08:25 Order name: CT Lumbar Spine Wo Con; Complete Time: :32 rt 11/23 08:25 Order name: CT Pelvis wo Cont; Complete Time: :32 rt Administered Medications: 09:15 Drug: morphine IVP or IV 4 mg IVP once over 4 mins Route: IVP; Infused Over: 4 mins; rs5 Site: right forearm; 09:31 Follow up: Response: No adverse reaction rs5 09:15 Drug: Ondansetron IVP 4 mg IVP once; over 2 minutes Route: IVP; Site: right forearm; rs5 09:31 Follow up: Response: No adverse reaction rs5 09:15 Drug: Cyclobenzaprine PO 10 mg PO once Route: PO; rs5 10:01 Follow up: Response: No adverse reaction rs5 Disposition Summary: 11/24/23 10:15 Discharge Ordered Notes: Location: Home rt Problem: new rt Symptoms: have improved rt Condition: Stable rt Diagnosis - Mechanical fall rt - Low back pain rt Followup: rt - With: Private Physician - When: 2 - 3 days - Reason: Discharge Instructions: - Discharge Summary Sheet rt - Acute Back Pain, Adult rt - Fall Prevention in the Home, Adult rt Forms: - Medication Reconciliation Form rt - Thank You Letter rt - Antibiotic Education rt - Prescription Opioid Use rt - Patient Portal Instructions rt - Leadership Thank You Letter rt Prescriptions: - Cyclobenzaprine 5 mg Oral Tablet - take 1 tablet ORAL route 3 times per day As needed; 15 tablet; Refills: 0, rt Product Selection Permitted Signatures: Dispatcher [employer] Abraham Nagy RN RN jl7 Jose Varela MD MD rt Grabiel Marquez, RN RN rs5
--- NOTE | 2023-11-24 10:16 | ER ---
Nurse's Notes [facility] Name: Abad Santos Age: 68 yrs Sex: Male : 1955 Arrival Date: 11/24/2023 Time: 07:53 Bed 17 Private MD: Diagnosis: Mechanical fall;Low back pain Presentation: 11/23 07:59 Note Pt reports bilateral shoulder pain. jl7 08:00 Chief complaint: EMS states: Toned out for low back pain, chronic, fell last night and jl7 again this morning at 0600 due to loosing balance on right leg from increased back pain. 08:00 Coronavirus screen: At this time, the client does not indicate any symptoms associated jl7 with coronavirus-19. Ebola Screen: No symptoms or risks identified at this time. Initial Sepsis Screen: Does the patient meet any 2 criteria? No. Patient's initial sepsis screen is negative. Does the patient have a suspected source of infection? No. Patient's initial sepsis screen is negative. Risk Assessment: Do you want to hurt yourself or someone else? Patient reports no desire to harm self or others. Onset of symptoms is unknown. Care prior to arrival: None. Transition of care: patient was not received from another setting of care. 08:00 Method Of Arrival: EMS: [facility] jl7 08:00 Acuity: JOSE MIGUEL 3 jl7 Triage Assessment: 08:11 General: Appears in no apparent distress. uncomfortable, Behavior is calm, cooperative, jl7 appropriate for age. Pain: Complains of pain in low back area Pain currently is 8 out of 10 on a pain scale. Neuro: Level of Consciousness is awake, alert, obeys commands, Oriented to person, place, time, situation. Cardiovascular: Patient's skin is warm and dry. Respiratory: Airway is patent Respiratory effort is even, unlabored, Respiratory pattern is regular, symmetrical. Derm: Skin is pink, warm \T\ dry. Historical: - Allergies: 08:11 No Known Allergies; jl7 - Home Meds: 08:11 allopurinol 300 mg Oral tab 1 tab once daily [Active]; aspirin 81 mg Oral TbEC 1 tab jl7 once daily [Active]; colchicine 0.6 mg Oral tab 1 tab once daily [Active]; lisinopril 40 mg Oral tab 1 tab once daily [Active]; tramadol 50 mg Oral tab as needed [Active]; - PMHx: 08:11 back problems (Unknown); Gout; Hypertension; Pre Diabetes (Unknown); jl7 - PSHx: 08:11 Coronary artery bypass graft; L5-L2 fusion; jl7 - Immunization history:: Adult Immunizations unknown. - Social history:: Smoking status: Patient denies any tobacco usage or history of. - Family history:: not pertinent. Screenin:07 [facility] ED Fall Risk Assessment (Adult) History of falling in the last 3 months, rs5 including since admission No falls in past 3 months (0 pts) Confusion or Disorientation No (0 pts) Intoxicated or Sedated No (0 pts) Impaired Gait No (0 pts) Mobility Assist Device Used No (0 pt) Altered Elimination No (0 pt) Score/Fall Risk Level 0 - 2 = Low Risk Oriented to surroundings, Maintained a safe environment. Abuse screen: Denies threats or abuse. Nutritional screening: No deficits noted. Tuberculosis screening: No symptoms or risk factors identified. Assessment: 08:07 General: Appears in no apparent distress. uncomfortable, Behavior is calm, cooperative. rs5 Pain: Complains of pain in low back area Pain does not radiate. Pain currently is 8 out of 10 on a pain scale. Quality of pain is described as aching, Is continuous. Neuro: Level of Consciousness is awake, alert, obeys commands, Oriented to person, place, time, situation. Cardiovascular: Patient's skin is warm and dry. Rhythm is regular. Respiratory: Airway is patent Respiratory effort is even, unlabored, Respiratory pattern is regular, symmetrical. GI: Abdomen is round non-distended, Abd is soft and non tender X 4 quads. : No signs and/or symptoms were reported regarding the genitourinary system. EENT: No signs and/or symptoms were reported regarding the EENT system. Derm: Skin is intact, Skin is pink, warm \T\ dry. Musculoskeletal: Circulation, motion, and sensation intact. Reports generalized weakness. 08:21 Reassessment: Dr. Varela at bedside assessing pt. jl7 09:37 Reassessment: Patient and/or family updated on plan of care and expected duration. Pain rs5 level reassessed. Patient is alert, oriented x 3, equal unlabored respirations, skin warm/dry/pink. Patient denies pain at this time. Patient states feeling better. Patient states symptoms have improved. 10:18 Reassessment: No changes from previously documented assessment. rs5 Vital Signs: 08:00 BP 140 / 76; Pulse 87; Resp 17; Temp 99.3; Pulse Ox 95% ; Weight 125.19 kg; Height 5 jl7 ft. 4 in. ; Pain 8/10; 09:30 BP 137 / 76; Pulse 70; Resp 18; Pulse Ox 98% on R/A; rs5 10:18 BP 144 / 78; Pulse 80; Resp 18; Pulse Ox 99% on R/A; rs5 08:00 Body Mass Index 47.37 (125.19 kg, 162.56 cm) jl7 08:00 Pain Scale: Adult jl7 ED Course: 08:06 Patient arrived in ED. rs5 08:07 Patient has correct armband on for positive identification. Placed in gown. Bed in low rs5 position. Call light in reach. Side rails up X2. 08:09 Grabiel Marquez RN is Primary Nurse. rs5 08:11 Triage completed. jl7 08:11 Arm band placed on right wrist. jl7 08:18 Jose Varela MD is Attending Physician. rt 08:27 Primary Nurse role handed off by Grabiel Marquez RN jl7 08:28 Grabiel Marquez RN is Primary Nurse. rs5 08:31 No provider procedures requiring assistance completed. rs5 08:50 CT Lumbar Spine Wo Con In Process Unspecified. EDMS 08:50 CT Pelvis wo Cont In Process Unspecified. EDMS 10:28 IV discontinued, intact, bleeding controlled, No redness/swelling at site. Pressure rs5 dressing applied. Administered Medications: 09:15 Drug: morphine IVP or IV 4 mg IVP once over 4 mins Route: IVP; Infused Over: 4 mins; rs5 Site: right forearm; 09:31 Follow up: Response: No adverse reaction rs5 09:15 Drug: Ondansetron IVP 4 mg IVP once; over 2 minutes Route: IVP; Site: right forearm; rs5 09:31 Follow up: Response: No adverse reaction rs5 09:15 Drug: Cyclobenzaprine PO 10 mg PO once Route: PO; rs5 10:01 Follow up: Response: No adverse reaction rs5 Medication: 08:32 VIS not applicable for this client. rs5 Outcome: 10:15 Discharge ordered by MD. rt 10:30 Patient left the ED. rs5 10:30 Discharged to home via wheelchair, rs5 10:30 Condition: stable 10:30 Discharge instructions given to patient, family, Instructed on discharge instructions, follow up and referral plans. medication usage, Demonstrated understanding of instructions, follow-up care, medications, Prescriptions given X 1, Signatures: Dispatcher [employer] EDMS Emily Lang RN RN iw Abraham Iyer RN RN jl7 Jose Varela MD MD rt Grabiel Marquez RN RN rs5 Corrections: (The following items were deleted from the chart) 08:17 08:16 Reassessment: mo jlJaret 08:17 08:17 Reassessment: Awaiting provider visit at this time. Reassessment: Awaiting jl7 provider visit at this time. jl7 08:31 08:17 Reassessment: Awaiting provider visit at this time. jl7 rs5 08:31 08:30 General: Appears rs5 rs5 12:30 11:25 Reassessment: No changes from previously documented assessment. rs5 rs5 12:30 10:51 Patient left the ED. iw rs5
[2023-11-24 11:04] VITALS: BP 144/78; TEMP 99.3; O2SAT 99
== END 2023-11-24 10:51 | disposition home or self-care (01) ==
LOC: ER 07:53
DX: M54.50 Low back pain, unspecified (principal); W18.30XA Fall on same level, unspecified, initial encounter; I10 Essential (primary) hypertension; Z95.1 Presence of aortocoronary bypass graft; Z79.82 Long term (current) use of aspirin
CPT/HCPCS: 72131; 72192; 96375; 96374; 99284; J2405

== ENCOUNTER 2023-11-26 00:15 | Emergency (ER) | payer MEDICARE ==
[2023-11-26 00:56] LABS: Absolute Basophils 0.1 K/uL (0-0.5); Absolute Lymphocytes (CBC) 1.7 K/uL (0.7-4.9); Absolute Monocytes 1.1 K/uL (0.1-1.3); Absolute Neutrophil 3.5 K/uL (1.8-8.0); Basophils % 1.2 % (0-1.3); Eosinophils % 0.3 % (0-4.4); Hematocrit 39.1 % (39.6-49.0); Hemoglobin 13.8 g/dL (13.6-17.9); Lymphocytes % 26.9 % (15.3-44.8); MCH 30.4 pg (27.0-35.0); MCHC 35.3 g/dL (32.0-36.0); MCV 86.2 fL (80-100); MPV 8.2 fL (7.6-11.3); Monocytes % 16.6 % (3.3-12.3); Nucleated Red Blood Cells % 0.2 % (0-0); Platelets 241 thou/uL (152-406); RBC Red Blood Cell Count 4.54 M/uL (4.33-5.43); Red Cell Distribution Width 13.7 % (12.1-15.2)
[2023-11-26 01:19] LABS: ALT/SGPT 27 U/L (16-61); Albumin 2.9 g/dL (3.4-5.0); Albumin/Globulin Ratio 0.7 (1.1-1.8); Alkaline Phosphatase 74 U/L (45-117); Anion Gap 12.1 mEq/L (5.0-15.0); BUN Blood Urea Nitrogen 30 mg/dL (7-18); Bicarbonate 25 mEq/L (21-32); Bilirubin Total 0.7 mg/dL (0.2-1.0); Globulin 4.2 g/dL (2.3-3.5); Glomerular Filtration Rate 47 ml/min (=/>90); Glucose Level 100 mg/dL (74-106); Protein, Total 7.1 g/dL (6.4-8.2); Sodium Level 133 mEq/L (136-145)
[2023-11-26 01:20] LABS: AST/SGOT 49 U/L (15-37); Bilirubin Direct < 0.1 mg/dL (0-0.2); Bilirubin Indirect, Calculated ND mg/dL (0.2-0.8); Magnesium 1.7 mg/dL (1.6-2.4); Potassium 4.1 mEq/L (3.5-5.1)
--- NOTE | 2023-11-26 01:34 | ER ---
Nurse's Notes [facility] Name: Abad Santos Age: 68 yrs Sex: Male : 1955 Arrival Date: 11/26/2023 Time: 00:15 Bed 7 Private MD: Diagnosis: Subsequent non-ST elevation (NSTEMI) myocardial infarction Presentation: 11/25 00:16 Chief complaint: EMS states: sudden onset of chest pain rad to left arm, on and off rv pain. with LUQ abd pain. without nausea and vomiting. Coronavirus screen: At this time, the client does not indicate any symptoms associated with coronavirus-19. Ebola Screen: No symptoms or risks identified at this time. Initial Sepsis Screen: Does the patient meet any 2 criteria? No. Patient's initial sepsis screen is negative. Does the patient have a suspected source of infection? No. Patient's initial sepsis screen is negative. Risk Assessment: Do you want to hurt yourself or someone else? Patient reports no desire to harm self or others. Onset of symptoms was November 26, 2023. 00:16 Method Of Arrival: EMS: [facility] rv 00:16 Acuity: JOSE MIGUEL 2 rv Triage Assessment: 00:17 General: Appears uncomfortable, Behavior is calm, cooperative. Pain: Complains of pain rv in chest and abdomen. Neuro: Level of Consciousness is awake, alert, obeys commands, Oriented to person, place, time, situation. Cardiovascular: Capillary refill < 3 seconds Patient's skin is warm and dry. Respiratory: Airway is patent Respiratory effort is even, unlabored. GI: Reports upper abdominal pain. : No signs and/or symptoms were reported regarding the genitourinary system. Derm: Skin is intact. Historical: - Allergies: 00:17 No Known Allergies; rv - PMHx: 00:17 back problems (Unknown); Gout; Hypertension; Pre Diabetes (Unknown); rv - PSHx: 00:17 Coronary artery bypass graft; L5-L2 fusion; rv - Immunization history:: Adult Immunizations up to date. - Social history:: Smoking status: Patient denies any tobacco usage or history of. - Family history:: not pertinent. Screenin:19 [facility] ED Fall Risk Assessment (Adult) History of falling in the last 3 months, rv including since admission Yes- single mechanical fall (1 pt) Confusion or Disorientation No (0 pts) Intoxicated or Sedated No (0 pts) Impaired Gait No (0 pts) Mobility Assist Device Used No (0 pt) Altered Elimination No (0 pt) Score/Fall Risk Level 0 - 2 = Low Risk Oriented to surroundings, Maintained a safe environment, Educated pt \T\ family on fall prevention, incl call for assistance when getting out of bed, Assessed \T\ reinforced patient's understanding of fall precautions. Abuse screen: Denies threats or abuse. Denies injuries from another. Nutritional screening: No deficits noted. Tuberculosis screening: No symptoms or risk factors identified. Vital Signs: 00:16 BP 151 / 116; Pulse 81; Resp 17; Temp 98; Pulse Ox 96% on R/A; Weight 126.1 kg; Height rv 5 ft. 10 in. ; 00:54 BP 100 / 64; Pulse 74; Resp 20; Pulse Ox 97% on R/A; rv 01:33 BP 93 / 65; Pulse 76; Resp 17; Pulse Ox 96% ; rv 02:00 BP 92 / 68; Pulse 67; Resp 16; Pulse Ox 97% on 2 lpm NC; rv 03:00 BP 96 / 71; Pulse 66; Resp 15; Pulse Ox 99% on 2 lpm NC; rv 04:00 BP 99 / 60; Pulse 68; Resp 16; Pulse Ox 98% on 2 lpm NC; rv 04:56 BP 109 / 81; Pulse 64; Resp 16; Temp 98; Pulse Ox 99% on 2 lpm NC; rv 00:16 Body Mass Index 39.89 (126.10 kg, 177.8 cm) rv Elba Coma Score: 03:04 Eye Response: spontaneous(4). Motor Response: obeys commands(6). Verbal Response: rv oriented(5). Total: 15. 04:56 Eye Response: spontaneous(4). Motor Response: obeys commands(6). Verbal Response: rv oriented(5). Total: 15. ED Course: 00:16 Patient arrived in ED. ty 00:17 Jose Varela MD is Attending Physician. rt 00:17 Triage completed. rv 00:17 Arm band placed on right wrist. rv 00:18 No provider procedures requiring assistance completed. Maintain EMS IV. Dressing rv intact. Good blood return noted. Site clean \T\ dry. Gauge \T\ site: 20 left wrist. 00:19 Patient has correct armband on for positive identification. Client placed on continuous rv cardiac and pulse oximetry monitoring. NIBP monitoring applied. cage cashier on. 00:36 Basic Metabolic Panel Sent. rv 00:36 CBC with Diff Sent. rv 00:36 LFT's Sent. rv 00:36 Magnesium Sent. rv 00:36 Troponin HS Sent. rv 00:36 Initial lab(s) drawn, by me, sent to lab. EKG done, by ED staff, reviewed by Jose Varela MD. 01:11 XRAY Chest (1 view) In Process Unspecified. EDMS 01:50 Inserted saline lock: 20 gauge in right hand, using aseptic technique. rv 01:58 [facility] transfer Center called, spoke with Yaneth, to initiate transfer. ty 03:36 Acceptance given and then revoked due to patient BP too low. Checking for ICU beds. ty 04:07 Acceptance given. ty 04:15 [facility] called for transport, Acceptance ETA [id number]. ty 04:31 Report given to VIKTORIYA Hubbard at [facility]. cm10 04:57 Patient transferred, IV remains in place. rv Administered Medications: 01:50 Drug: Enoxaparin Sub-Q 1 mg/kg Sub-Q once Route: Sub-Q; Site: abdomen; rv 03:24 Follow up: Response: No adverse reaction rv 01:50 Drug: NS 0.9% IV 1000 ml IV at 1 bolus Per protocol; 1000 mL bolus Route: IV; Rate: 1 rv bolus; Site: right hand; 03:24 Follow up: IV Status: Completed infusion; IV Intake: 1000ml rv 04:47 Drug: fentaNYL (PF) IVP 50 mcg IVP once Route: IVP; Site: right hand; rv 04:57 Follow up: Response: Medication administered at discharge. rv Medication: 00:19 VIS not applicable for this client. rv Intake: 03:24 IV: 1000ml; Total: 1000ml. rv Outcome: 01:34 ER care complete, transfer ordered by . rt 04:56 Transferred by ground EMS to [facility], Transfer form completed. rv X-rays sent w/ patient. 04:56 Condition: good 04:56 Instructed on the need for transfer, 04:57 Patient left the ED. rv Signatures: Dispatcher [employer] EDMS Jadon Hodge, VIKTORIYA RN rv Jose Varela MD MD rt Yokasta Horton RN RN cm10 Marco Triplett Corrections: (The following items were deleted from the chart) 00:55 00:54 BP 100 / 64; Pulse 74bpm; Resp 20bpm; Pulse Ox 94% RA; rv rv
--- NOTE | 2023-11-26 01:34 | EDPHYS ---
Physician Documentation [facility] Name: Abad Santos Age: 68 yrs Sex: Male : 1955 Arrival Date: 11/26/2023 Time: 00:15 Bed 7 Private MD: ED Physician Jose Varela HPI: 11/25 00:39 This 68 yrs old Male presents to ER via EMS with complaints of Chest Pain. rt 00:39 Patient presents to the ED with substernal chest pain that woke him up. Patient reports rt that his left arm went numb. Reports nausea vomiting. States that the pain is completely resolved at this time. Was given 324 of aspirin prior to arrival. Denies other acute complaints this time, symptoms are moderate in severity, no other aggravating or alleviating factors.. Historical: - Allergies: 00:17 No Known Allergies; rv - PMHx: 00:17 back problems (Unknown); Gout; Hypertension; Pre Diabetes (Unknown); rv - PSHx: 00:17 Coronary artery bypass graft; L5-L2 fusion; rv - Immunization history:: Adult Immunizations up to date. - Social history:: Smoking status: Patient denies any tobacco usage or history of. - Family history:: not pertinent. ROS: 00:39 Constitutional: Negative for fever, chills, and weight loss, Respiratory: Negative for rt shortness of breath, cough, wheezing, and pleuritic chest pain, MS/Extremity: Negative for injury and deformity, Skin: Negative for injury, rash, and discoloration, Neuro: Negative for headache, weakness, numbness, tingling, and seizure, 00:39 Cardiovascular: Positive for chest pain, Negative for edema, 00:39 Abdomen/GI: Positive for nausea and vomiting, Negative for abdominal pain, Exam: 00:39 Constitutional: This is a well developed, well nourished patient who is awake, alert, rt and in no acute distress. Head/Face: Normocephalic, atraumatic. Chest/axilla: Normal chest wall appearance and motion. Nontender with no deformity. No lesions are appreciated. Cardiovascular: Regular rate and rhythm with a normal S1 and S2. No gallops, murmurs, or rubs. Normal PMI, no JVD. No pulse deficits. Respiratory: Lungs have equal breath sounds bilaterally, clear to auscultation and percussion. No rales, rhonchi or wheezes noted. No increased work of breathing, no retractions or nasal flaring. Abdomen/GI: Soft, non-tender, with normal bowel sounds. No distension or tympany. No guarding or rebound. No evidence of tenderness throughout. Skin: Warm, dry with normal turgor. Normal color with no rashes, no lesions, and no evidence of cellulitis. MS/ Extremity: Pulses equal, no cyanosis. Neurovascular intact. Full, normal range of motion. Neuro: Awake and alert, GCS 15, oriented to person, place, time, and situation. Cranial nerves II-XII grossly intact. Motor strength 5/5 in all extremities. Sensory grossly intact. Cerebellar exam normal. Normal gait. 00:39 ECG was reviewed by the Attending Physician. 03:31 ECG was reviewed by the Attending Physician. rt Vital Signs: 00:16 BP 151 / 116; Pulse 81; Resp 17; Temp 98; Pulse Ox 96% on R/A; Weight 126.1 kg; Height rv 5 ft. 10 in. ; 00:54 BP 100 / 64; Pulse 74; Resp 20; Pulse Ox 97% on R/A; rv 01:33 BP 93 / 65; Pulse 76; Resp 17; Pulse Ox 96% ; rv 02:00 BP 92 / 68; Pulse 67; Resp 16; Pulse Ox 97% on 2 lpm NC; rv 03:00 BP 96 / 71; Pulse 66; Resp 15; Pulse Ox 99% on 2 lpm NC; rv 04:00 BP 99 / 60; Pulse 68; Resp 16; Pulse Ox 98% on 2 lpm NC; rv 04:56 BP 109 / 81; Pulse 64; Resp 16; Temp 98; Pulse Ox 99% on 2 lpm NC; rv 00:16 Body Mass Index 39.89 (126.10 kg, 177.8 cm) rv Elva Coma Score: 03:04 Eye Response: spontaneous(4). Motor Response: obeys commands(6). Verbal Response: rv oriented(5). Total: 15. 04:56 Eye Response: spontaneous(4). Motor Response: obeys commands(6). Verbal Response: rv oriented(5). Total: 15. MDM: 00:17 Patient medically screened. rt 04:33 Differential diagnosis: Acute IN, unstable angina, pneumonia, pneumothorax. HEART rt Score: History: Highly Suspicious (2), ECG: Significant ST-deviation (2), Age: > or = 65 years (2), Risk Factors: > or = 3 Risk factors for atherosclerotic disease (2), Troponin: > or = 3 x Normal Limit (2), Total Score = 10. The patient was not given aspirin in the Emergency Department. Administered by EMS. Data reviewed: vital signs, nurses notes, lab test result(s), EKG, radiologic studies. Consideration of Admission/Observation Patient requires transfer for higher level of care. 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 I considered the following discharge prescriptions or medication management in the emergency department Medications were administered in the Emergency Department. See MAR. Independent interpretation of the following test(s) in the Emergency Department X-Ray: My interpretation is No consolidation seen on interpretation of x-ray images. Test considered but Not performed: CT: Low suspicion for pulmonary embolism, CT angiogram not indicated. Care significantly affected by the following chronic conditions: Coronary artery disease. Counseling: I had a detailed discussion with the patient and/or guardian regarding the historical points, exam findings, and any diagnostic results supporting the discharge/admit diagnosis, lab results, radiology results, the need to transfer to another facility. Response to treatment: the patient's symptoms have markedly improved after treatment. 11/25 00:25 Order name: Basic Metabolic Panel; Complete Time: : rt 11/25 00:25 Order name: CBC with Diff; Complete Time: : rt 11/25 00:25 Order name: LFT's; Complete Time: rt 11/25 00:25 Order name: Magnesium; Complete Time: : rt 11/25 00:25 Order name: Troponin HS; Complete Time: : rt 11/25 03:07 Order name: BNP; Complete Time: rt 11/25 00:25 Order name: XRAY Chest (1 view) rt 11/25 03:16 Order name: EKG; Complete Time: 03: rt 11/25 00:25 Order name: Cardiac monitoring; Complete Time: 00:35 rt 11/25 00:25 Order name: EKG - Nurse/Tech; Complete Time: 00:35 rt 11/25 00:25 Order name: IV Saline Lock; Complete Time: 00:35 rt 11/25 00:25 Order name: Labs collected and sent; Complete Time: 00:36 rt 11/25 00:25 Order name: O2 Per Protocol; Complete Time: 00:36 rt 11/25 00:25 Order name: O2 Sat Monitoring; Complete Time: 00:36 rt 11/25 03:16 Order name: EKG - Nurse/Tech; Complete Time: 03:24 rt EC:39 Rate is 81 beats/min. Rhythm is regular, Normal Sinus Rhythm with No ectopy. MA rt interval is normal. QRS interval is normal. QT interval is normal. No Q waves. Clinical impression: NSR w/ Non-specific ST/T Changes. 03:31 Rate is 67 beats/min. Rhythm is regular, Normal Sinus Rhythm with No ectopy. QRS Bailey rt is Normal. MA interval is normal. QRS interval is normal. QT interval is normal. Clinical impression: NSR w/ Non-specific ST/T Changes. Administered Medications: 01:50 Drug: Enoxaparin Sub-Q 1 mg/kg Sub-Q once Route: Sub-Q; Site: abdomen; rv 03:24 Follow up: Response: No adverse reaction rv 01:50 Drug: NS 0.9% IV 1000 ml IV at 1 bolus Per protocol; 1000 mL bolus Route: IV; Rate: 1 rv bolus; Site: right hand; 03:24 Follow up: IV Status: Completed infusion; IV Intake: 1000ml rv 04:47 Drug: fentaNYL (PF) IVP 50 mcg IVP once Route: IVP; Site: right hand; rv 04:57 Follow up: Response: Medication administered at discharge. rv Disposition Summary: 11/26/23 01:34 Transfer Ordered Notes: Transfer Location: [facility] rt Reason: Higher level of care rt Condition: Fair rt Problem: new rt Symptoms: have improved rt Accepting Physician: (11/26/23 04:57) rv Diagnosis - Subsequent non-ST elevation (NSTEMI) myocardial infarction rt Forms: - Medication Reconciliation Form rt - SBAR form rt Signatures: Dispatcher [employer] EDJadon Vidal RN RN rv Jose Varela MD MD rt Corrections: (The following items were deleted from the chart) 00:26 00:26 BASIC METABOLIC PANEL+C.LAB.BRZ ordered. EDMS EDMS 00: 00: CBC+H.LAB.BRZ ordered. EDMS EDMS : 00:26 HEPATIC FUNCTION+C.LAB.BRZ ordered. EDMS EDMS : 00:26 MAGNESIUM+C.LAB.BRZ ordered. EDMS EDMS 00: 00:26 Troponin High Sensitivity+C.LAB.BRZ ordered. EDMS EDMS 00:26 Chest Single View+RAD.RAD.BRZ ordered. EDMS EDMS 03:07 03:07 PROBNP+C.LAB.BRZ ordered. EDMS EDMS 04:57 01:34 rt rv
[2023-11-26] MEDS ORDERED: ENOXAPARIN 30 MG/0.3 ML SQ ONE (01:36)
[2023-11-26] MEDS ORDERED: ENOXAPARIN 100 MG/ML SYR SQ ONE (01:36)
[2023-11-26] MEDS ORDERED: NA CHLORIDE 0.9% 1,000 ML ONE (01:41)
[2023-11-26] MEDS ORDERED: FENTANYL CITR 100 MCG/2 ML ONE (04:44)
[2023-11-26 05:45] VITALS: BP 109/81; TEMP 98; O2SAT 99
--- NOTE | 2023-11-26 09:38 | EKG ---
Test Date: 2023-11-26 Test Time: 00:16:57 Aerosol Line Operator: RV MEASUREMENT RESULTS: Intervals: Rate: 81 [place]: 176 QRSD: 98 QT: 384 QTc: 446 [place]: P: 30 [place]: 176 QRS: 66 T: 145 INTERPRETIVE STATEMENTS: Normal sinus rhythm Possible Left atrial enlargement Nonspecific ST and T wave abnormality Abnormal ECG Compared to ECG 01/09/2018 02:49:03 ST (T wave) deviation now present Sinus bradycardia no longer present Fusion complex(es) no longer present Myocardial infarct finding no longer present Electronically Signed On 11-26-23 09:38:01 CDT by Casey Garevy
--- NOTE | 2023-11-26 09:38 | EKG ---
Test Date: 2023-11-26 Test Time: 03:10:20 Laboratory Coordinator: RV MEASUREMENT RESULTS: Intervals: Rate: 67 MD: 186 QRSD: 102 QT: 394 QTc: 416 [place]: P: 45 MD: 186 QRS: 71 T: 171 INTERPRETIVE STATEMENTS: Normal sinus rhythm Possible Left atrial enlargement ST & T wave abnormality, consider inferolateral ischemia Abnormal ECG Compared to ECG 11/26/2023 00:16:57 Possible ischemia now present ST (T wave) deviation still present Electronically Signed On 11-26-23 09:37:56 CDT by Casey Garvey
--- NOTE | 2023-11-27 15:28 | RAD REPORT ---
EXAM DESCRIPTION: RAD - Chest Single View - 11/26/2023 1:09 am CLINICAL HISTORY: CHEST PAIN COMPARISON: None FINDINGS: Cardiac silhouette is prominent in size. Patient is status post median sternotomy. EKG destiny ds project over the chest.. There is no focal parenchymal or pleural disease. There is no acute osseo us process visualized. IMPRESSION: No evidence of acute cardiopulmonary disease. Electronically signed by: Carlton Reed MD 11/26/2023 01:37 AM CDT Due to temporary technical issues with the PACS/Fluency reporting system, reports are being signed by the in house radiologists without review as a courtesy to insure prompt reporting. The interpreting radiologist is fully responsible for the content of the report
== END 2023-11-26 04:57 | disposition short-term general hospital (02) ==
LOC: ER 00:15
DX: I22.2 Subsequent non-ST elevation (NSTEMI) myocardial infarction (principal); I21.9 Acute myocardial infarction, unspecified; I10 Essential (primary) hypertension; Z95.1 Presence of aortocoronary bypass graft
CPT/HCPCS: 96361; 93005 ×2; 85025; 80048; 36415; 83735; 80076; 84484; 83880; 71045; 96372; 96374; 99285; J1650 ×2; J3010; J7030